=== PATIENT | female | born 1995 ===

== ENCOUNTER 2016-09-30 12:29 | Emergency (ER) | payer OTHER, MEDICAID ==
--- NOTE | 2016-09-30 14:11 | UC ---
Throat Pain/Nasal Wing HPI - HPI Summary HPI Summary: HISTORY OF FREQUENT THROAT INFECTIONS. ONE DAY HISTORY OF FEVER CONGESTION, SORE THROAT RUNNY NOSE, BODY ACHES. - History of Current Complaint Chief Complaint: UCRespiratory Stated Complaint: CONGEST,COUGH, SORE THROAT Time Seen by Provider: 09/30/16 12:51 Hx Obtained From: Patient Hx Last Menstrual Period: 09/25/16 Onset/Duration: Sudden Onset, Lasting Hours, Still Present Severity: Moderate Cough: Nonproductive Associated Signs & Symptoms: Positive: Dysphagia, Hoarseness, Sinus Discomfort, Nasal Discharge, Fever - Epiglottits Risk Factors Epiglottis Risk Factors: Negative - Allergies/Home Medications Allergies/Adverse Reactions: Allergies Allergy/AdvReac Type Severity Reaction Status Date / Time No Known Allergies Allergy Verified 09/30/16 13:02 PMH/Surg Hx/FS Hx/Imm Hx Previously Healthy: Yes Endocrine History Of: Denies: Diabetes, Thyroid Disease Cardiovascular History Of: Denies: Cardiac Disorders, Hypertension Respiratory History Of: Denies: COPD, Asthma GI/ History Of: Denies: Ulcer - Surgical History Surgical History: None - Family History Known Family History: Negative: Respiratory Disease - Social History Occupation: Student Lives: With Family Alcohol Use: Weekly Substance Use Type: None Smoking Status (MU): Never Smoked Tobacco Review of Systems Constitutional: Fever, Chills, Fatigue Skin: Negative Eyes: Negative ENT: Sore Throat, Nasal Discharge Respiratory: Negative Cardiovascular: Negative Gastrointestinal: Negative Genitourinary: Negative Motor: Negative Neurovascular: Negative Musculoskeletal: Myalgia Neurological: Negative Psychological: Negative All Other Systems Reviewed And Are Negative: Yes Physical Exam Triage Information Reviewed: Yes Appearance: No Pain Distress, Well-Nourished, Ill-Appearing - MILD Vital Signs: Initial Vital Signs Temp 99.5 F 09/30/16 12:58 Pulse 123 09/30/16 12:58 Resp 18 09/30/16 12:58 BP 107/82 09/30/16 12:58 Pulse Ox 100 09/30/16 12:58 Vital Signs Reviewed: Yes Eye Exam: Normal Eyes: Positive: Conjunctiva Clear ENT: Positive: Hearing grossly normal, Pharyngeal erythema, Nasal congestion, TMs normal Dental Exam: Normal Neck exam: Normal Neck: Positive: Supple, Nontender, No Lymphadenopathy. Negative: Nuchal Rigidity, Tenderness @, Enlarged Nodes @ Respiratory Exam: Normal Respiratory: Positive: Chest non-tender, Lungs clear, Normal breath sounds, No respiratory distress, No accessory muscle use Cardiovascular Exam: Normal Cardiovascular: Positive: RRR, No Murmur, Pulses Normal Abdominal Exam: Normal Abdomen Description: Positive: Nontender, No Organomegaly, Soft Musculoskeletal Exam: Normal Musculoskeletal: Positive: Strength Intact, ROM Intact Neurological Exam: Normal Psychological Exam: Normal Skin Exam: Normal Throat Pain/Nasal Course/Dx - Differential Dx/Diagnosis Differential Diagnosis/HQI/PQRI: Influenza, Pharyngitis, Sinusitis, Tonsillitis Provider Diagnoses: INFLUENZA Discharge - Discharge Plan Condition: Stable Disposition: HOME Prescriptions: Oseltamivir CAP* [Tamiflu CAP*] 75 mg PO BID #10 cap Patient Education Materials: Influenza (ED) Forms: *School Release Referrals: [facility] @ [Outside] Non Staff,Doctor [Primary Care Provider] -
== END 2016-09-30 14:12 | disposition home or self-care (01) ==
LOC: UCEAST 12:29
DX: J11.1 Influenza due to unidentified influenza virus with other respiratory manifestations (principal)
CPT/HCPCS: 87502; 87651; 99202; G0463